=== PATIENT | female | born 1950 | race Caucasian/White ===

== ENCOUNTER → 2017-04-09 10:50 | Outpatient (POV) | payer MEDICARE, SELFPAY | PROVIDERS: Family Provider Family Medicine; PCP Internal Medicine; Visit Provider Internal Medicine | DX: Z00.00 Encounter for general adult medical examination without abnormal findings (principal) ==

== ENCOUNTER → 2017-05-04 12:32 | Outpatient (CLI) | payer MEDICARE, SELFPAY ==
--- NOTE | 2017-05-04 12:44 | CT_ITS ---
CT chest wo con HISTORY: Follow-up pulmonary nodule, tobacco abuse, smoking history, COPD/emphysema ITS.REASON: ABNIORMAL LUNG IMAGING ORDERING PHYSICIAN: Juve Martinez MD PATIENT AGE: 67 years TECHNIQUE: Axial images obtained. Sagittal and coronal reformatted images are also generated and reviewed. CONTRAST: None COMPARISON: 12/05/2016 FINDINGS: Old granulomatous disease with calcified nodes in the mediastinum. No mediastinal or hilar adenopathy. Coronary artery calcifications are present. No evidence of aortic aneurysm. Normal heart size without pericardial effusion. Centrilobular emphysematous changes with hyperinflation and bronchial thickening. Scattered calcified nodules. Scattered noncalcified pulmonary opacities are once again noted not significantly changed. The largest opacities are present in the right upper lobe inferiorly and anteriorly at 9 x 5 millimeters and in the left lower lobe subpleural in nature at 8 x 5 mm as well as the lingula at 6 mm. The 9 x 5 mm density in the right upper lobe appears slightly more prominent on the axial images but not on the reformatted images and may be due to the slice orientation and technique utilized. No effusions or infiltrates. There are scattered fibrotic changes. Upper abdominal images are unremarkable. No acute bony anomalies. IMPRESSION: 1. Overall no significant change in the pulmonary nodules as described above. The largest nodule right upper lobe appears slightly more prominent on the axial images but may be related to the technique utilized in slice orientation therefore, recommend 6 month follow-up. 2. Centrilobular emphysematous change with old granulomatous disease and coronary artery calcifications.
== END ==
PROVIDERS: Family Provider Family Medicine; PCP Family Medicine; Visit Provider Internal Medicine
DX: R91.8 Other nonspecific abnormal finding of lung field (principal)
CPT/HCPCS: 71250

== ENCOUNTER → 2017-11-13 09:59 | Outpatient (POV) | payer MEDICARE, SELFPAY | PROVIDERS: Family Provider Family Medicine; PCP Family Medicine; Visit Provider Internal Medicine | DX: Z00.00 Encounter for general adult medical examination without abnormal findings (principal) ==